=== PATIENT | male | born 1955 | race Caucasian/White ===

== ENCOUNTER 2017-02-06 14:28 | Emergency (ER) | payer BC ==
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
[2017-02-06 16:08] LABS: INR - (THERAPEUTIC) 1.01 (0.92-1.07); PROTIME 10.6 SECONDS (9.8-11.4)
== END 2017-02-06 17:58 | disposition disaster alternative care site (69) ==
LOC: GACC 14:28
PROVIDERS: Emergency Medicine
DX: S22.31XA Fracture of one rib, right side, initial encounter for closed fracture (principal); S22.42XA Multiple fractures of ribs, left side, initial encounter for closed fracture; I10 Essential (primary) hypertension; K21.9 Gastro-esophageal reflux disease without esophagitis; Z98.890 Other specified postprocedural states; V89.1XXA Person injured in unspecified nonmotor-vehicle accident, nontraffic, initial encounter; V86.99XA Unspecified occupant of other special all-terrain or other off-road motor vehicle injured in nontraffic accident, initial encounter
CPT/HCPCS: J1170; J2405; Q9967